=== PATIENT | female | born 2000 | race Caucasian/White ===

== ENCOUNTER 2019-04-20 10:19 | Emergency (ER) | payer MEDICAID, OTHER ==
[~2019-04-20] VITALS: Ht 152.4 cm; Wt 52.4 kg
[~2019-04-20 10:19] MED LIST: CEPH-443 PO; IBUP-1542 PO
[2019-04-20 10:25] VITALS: BP 111/73; PULSE 64; RESP 20; Ht 152.4 cm; Wt 52.4 kg
== END 2019-04-20 11:23 | disposition home or self-care (01) ==
LOC: FTE 10:19
DX: Z48.01 Encounter for change or removal of surgical wound dressing (principal)
CPT/HCPCS: 99281